=== PATIENT | female | born 1955 | race Caucasian/White ===

== ENCOUNTER → 2023-04-10 14:13 | Outpatient (CLI) | payer MEDICARE, OTHER, SELFPAY ==
--- NOTE | 2023-04-10 | DI.RAD.S_ITS ---
PROCEDURE: XR CHEST 2V INDICATIONS: Dyspnea on exertion, other chest pain TECHNIQUE: 2 views of the chest were acquired. COMPARISON: None. FINDINGS: Surgical changes and devices: None. Lungs and pleura: Lungs are clear. No pleural effusions or pneumothorax. Mediastinum: Mediastinal contours are normal. Heart size is normal. Bones and chest wall: No suspicious bony abnormalities. Soft tissues appear unremarkable. IMPRESSION: No acute process. Dictated by: Andrew Freitas M.D. on 04/10/2023 at 16:21 Approved by: Andrew Freitas M.D. on 04/10/2023 at 16:23
--- NOTE | 2023-04-11 19:20 | DI.NM.S_ITS ---
DATE OF SERVICE: 04/10/2023 INDICATIONS: Exertional chest pain, exertional shortness of breath. CARDIAC STRESS: The patient underwent exercise perfusion study under the supervision of an attending staff. The patient walked on Sacha protocol for 4 minutes and 20 seconds, achieved maximum heart rate of 140, which was 92 percent of target heart rate. Resting blood pressure 138/80 and peak blood pressure 190/90 mmHg. Achieved 7 METs of workload and RICCARDO positive 32%. Baseline rhythm was sinus. During stress, no convincing ischemic changes seen. No significant arrhythmias seen. Around 1 minute into the exercise patient started having chest discomfort which escalated to 7 on a scale of 1 to 10 at maximum exercise, and radiated into the left arm. It resolved 6 minutes into the recovery. During that time no obvious ischemic changes or significant arrhythmias seen. RAW DATA: There was breast shadow seen. GATED STUDY: Stress LV ejection fraction 92%. No obvious wall motion abnormalities. Resting end-diastolic volume 57 mL. Lung/heart ratio 0.36, which is within normal limits. TID ratio 1.27. However, visually I do not see any significant transient ischemic dilatation. Gated study as stated above. MYOCARDIAL PERFUSION SCAN: Stress supine, resting supine and stress prone images were compared to each other. Stress supine and stress prone images revealed normal myocardial perfusion. Resting supine images revealed small size, mildly decreased perfusion of base to mid anterior wall and distal anterior septum. No reversible ischemia. CONCLUSION: This is a normal myocardial perfusion study, as stress supine and stress prone images revealed normal myocardial perfusion. Diminished exercise tolerance. During exercise, the patient developed anginal type of chest discomfort with radiation to the left arm and resolved around 6 minutes in recovery. However, at that time no ischemic electrocardiographic changes or significant arrhythmias. There is a normal blood pressure response to exercise. Stress supine and stress prone images showed normal myocardial perfusion. LVEF 92%. Visually, no significant transient ischemic dilatation. As far as perfusion scan is concerned, this is a low-risk myocardial perfusion scan. She had typical anginal pain, which could be cardiac syndrome X or microvascular disease. Also consider GI motility disorder. In view of typical anginal pain during exercise, worthwhile to proceed with further cardiac evaluation, like CT coronary angiogram, to rule out epicardial coronary artery disease for sure. Chhaya Mirella - ALYSIA/cm/ doc#: [id number]/job#: [id number] dd: 04/11/2023 16:25:00 dt: 04/11/2023 18:51:00 DICTATING MD/COPIES TO: Mey Kruger MD COPIES MNE: ASAD;
== END ==
PROVIDERS: PCP Internal Medicine; Referring Provider Physician Assistant; Visit Provider Physician Assistant
DX: R07.89 Other chest pain (principal); R06.09 Other forms of dyspnea
CPT/HCPCS: 71046; 78452; 93017; A9502